=== PATIENT | male | born 1990 | race Caucasian/White ===

== ENCOUNTER 2020-10-23 00:44 | Emergency (ER) | payer OTHER ==
[~2020-10-23] VITALS: Ht 188 cm; Wt 113.4 kg
[~2020-10-23 00:44] MED LIST: KEFLEX500 MG PO
[2020-10-23] MEDS ORDERED: EPIPEN 2-P0.3 MG/0.3 IM (02:44)
[2020-10-23] MEDS ORDERED: PREDNISONE50 MG PO (02:44)
[2020-10-23 02:59] VITALS: BP 123/74
== END 2020-10-23 02:59 | disposition home or self-care (01) ==
LOC: M.ERS 00:44
DX: T78.40XA Allergy, unspecified, initial encounter (principal); Y92.89 Other specified places as the place of occurrence of the external cause

== ENCOUNTER 2021-01-31 18:57 | Emergency (ER) | payer OTHER ==
[~2021-01-31] VITALS: Ht 190.5 cm; Wt 131.5 kg
[~2021-01-31 18:57] MED LIST changes: +EPIPEN 2-P0.3 MG/0.3 IM; +PREDNISONE50 MG PO
[2021-01-31] MEDS ORDERED: DOXYCYCLINE 10100 MG PO (20:03)
[2021-01-31] MEDS ORDERED: HYDROCODON-ACE1 EAC8 PO (20:03)
[2021-01-31 20:13] VITALS: BP 164/89
== END 2021-01-31 20:14 | disposition home or self-care (01) ==
LOC: M.ERS 18:57
DX: H66.41 Suppurative otitis media, unspecified, right ear (principal)